=== PATIENT | male | born 1995 ===

== ENCOUNTER → 2018-11-10 | Outpatient (REF) ==
--- NOTE | 2018-11-10 13:24 | Diagnostic Imaging Report ---
INDICATION: Injury to left hand with abrasion to the dorsum of the forearm. TIME OF EXAM: 01:30 p.m. Three views of the left hand were obtained. Metacarpals appear to be intact. Phalanges are intact and no fractures are seen. Carpus is unremarkable. IMPRESSION: No acute abnormalities detected. Dictated by: Dictated on workstation # [id number]
--- NOTE | 2018-11-10 14:59 | Diagnostic Imaging Report ---
INDICATION: Injury to the left wrist. TIME OF EXAM: 1:27 p.m. EXAMINATION: Three views of the left wrist were obtained. FINDINGS: Distal radius and ulna are intact. Carpus is intact. No fractures are seen. IMPRESSION: No acute bony abnormality is detected. Dictated by: Dictated on workstation # [id number]
== END | disposition home or self-care (01) ==
LOC: RAD 12:52
PROVIDERS: ATTEND Nurse Practitioner Family
CPT/HCPCS: 73110; 73130

== ENCOUNTER → 2018-11-19 | Outpatient (REF) ==
--- NOTE | 2018-11-19 14:53 | Diagnostic Imaging Report ---
PROCEDURE: CT left upper extremity without contrast. TECHNIQUE: Multiple contiguous axial images were obtained through the left upper extremity without the use of intravenous contrast. INDICATION: Crush injury to the hand and wrist with dorsal pain. FINDINGS: The distal radius and ulna are intact. The scaphoid is intact. Remaining carpal bones including the lunate, triquetrum, capitate, and hamate are intact. The hook of the hamate is intact. Greater and lesser multangular as well as the pisiform are intact. Visualized metacarpals are unremarkable. No fractures are seen. IMPRESSION: No acute bony abnormality is detected. Dictated by: Dictated on workstation # [id number]
== END | disposition home or self-care (01) ==
LOC: RAD 14:05
PROVIDERS: ATTEND Nurse Practitioner Family
CPT/HCPCS: 73200